=== PATIENT | male | born 1985 | race American Indian/Alaskan Native ===

== ENCOUNTER 2020-06-18 18:59 | Emergency (ER) | payer SELFPAY ==
[2020-06-18 19:12] VITALS: BP 128/63; PULSE 104; RESP 15; TEMP 37; O2SAT 93; BMI 24.3
--- NOTE | 2020-06-18 19:15 | DI.RAD.S_ITS ---
PROCEDURE: XR KNEE RT 3V INDICATIONS: right knee injury TECHNIQUE: 3 views of the knee were acquired. COMPARISON: None. FINDINGS: Bones: No acute fractures or dislocations. No suspicious bony lesions. Soft tissues: Small joint effusion. No suspicious soft tissue calcifications. There is mild nonspecific prepatellar edema. IMPRESSION: No acute osseous abnormality. Small joint effusion. Mild nonspecific prepatellar edema or prepatellar bursal effusion. Dictated by: Luis Fernando Fulton M.D. on 06/18/2020 at 20:18 Approved by: Luis Fernando Fulton M.D. on 06/18/2020 at 20:19
[2020-06-18] MEDS: IBUPROFEN 400 MG TABLET 800 MG PO (19:41)
[2020-06-18] MEDS: ACETAMINOPHEN 325 MG TABLET 650 MG PO (19:41)
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
== END 2020-06-18 21:11 | disposition home or self-care (01) ==
PROVIDERS: Emergency Provider Nurse Practitioner Family
DX: S80.01XA Contusion of right knee, initial encounter (principal); V29.40XA Motorcycle driver injured in collision with unspecified motor vehicles in traffic accident, initial encounter
CPT/HCPCS: 73562; 99283; 99284

== ENCOUNTER 2023-03-27 19:23 | Emergency (ER) | payer OTHER, SELFPAY ==
[2023-03-27 19:40] VITALS: BP 123/81; PULSE 86; RESP 16; TEMP 36.4; O2SAT 99; BMI 25.1
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
[2023-03-28 01:33] VITALS: BP 125/70; PULSE 68; RESP 16; TEMP 36.4; O2SAT 98
== END 2023-03-28 01:25 | disposition home or self-care (01) ==
PROVIDERS: Emergency Provider Emergency Medicine
DX: S01.81XA Laceration without foreign body of other part of head, initial encounter (principal)
CPT/HCPCS: 12001; 70450; 70486; 72125; 99283; 99284

== ENCOUNTER 2023-09-04 20:33 | Emergency (ER) | payer OTHER, SELFPAY ==
[2023-09-04 20:36] VITALS: BP 141/67; PULSE 95; RESP 18; TEMP 37.2; O2SAT 95; BMI 25.1
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
[2023-09-04] MEDS: ACETAMINOPHEN 325 MG TABLET PO (22:29)
[2023-09-04] MEDS: IBUPROFEN 400 MG TABLET PO (22:29)
[2023-09-04 22:37] VITALS: BP 134/60; PULSE 88; RESP 16; O2SAT 98
== END 2023-09-04 22:40 | disposition home or self-care (01) ==
PROVIDERS: Emergency Provider Emergency Medicine
DX: S83.91XA Sprain of unspecified site of right knee, initial encounter (principal); V19.9XXA Pedal cyclist (driver) (passenger) injured in unspecified traffic accident, initial encounter
CPT/HCPCS: 73552; 73560; 73590; 99283

== ENCOUNTER 2023-10-23 20:10 | Emergency (ER) | payer OTHER, SELFPAY ==
[2023-10-23 20:20] VITALS: BP 134/83; PULSE 122; RESP 18; TEMP 37; O2SAT 96; BMI 25.1
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
[2023-10-23] MEDS: BACITRACIN OINT 0.9 GM PCKT 1 APPLIC TOP (20:46)
== END 2023-10-23 21:04 | disposition home or self-care (01) ==
PROVIDERS: Emergency Provider Emergency Medicine
DX: S01.81XA Laceration without foreign body of other part of head, initial encounter (principal); V19.9XXA Pedal cyclist (driver) (passenger) injured in unspecified traffic accident, initial encounter
CPT/HCPCS: 12011; 99282

== ENCOUNTER 2024-04-07 12:02 | Emergency (ER) | payer SELFPAY ==
[2024-04-07 12:03] VITALS: BP 142/78; PULSE 128; RESP 20; TEMP 37.3; O2SAT 94
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
== END 2024-04-07 12:08 | disposition home or self-care (01) ==
PROVIDERS: Emergency Provider Emergency Medicine
DX: Z00.8 Encounter for other general examination (principal)
CPT/HCPCS: 99281